=== PATIENT | female | born 1940 | race Caucasian/White ===

== ENCOUNTER 2021-08-16 21:53 | Emergency (ER) | payer BC ==
[~2021-08-16] VITALS: Ht 167.6 cm; Wt 86.2 kg
[2021-08-16 22:00] VITALS: BP 154/63
--- NOTE | 2021-08-16 22:00 | NUR ---
PT [facility] BLS. TAKEN TO BED 3
--- NOTE | 2021-08-16 22:00 | NUR ---
BIBA S/P FALL. LACERATION TO LEFT FOREHEAD, DRAINAGE COMTROLLED. PT DID NOT LOSE CONSCIOUSNESS AND STATED SHE TRIPPED OVER A DOOR JAM WHILE VISITING AT FRIENDS HOUSE.
--- NOTE | 2021-08-16 22:29 | NUR ---
Dr. Torres examining patient.
[2021-08-16] MEDS ORDERED: BACITRACIN OINT 500 UNITS/GM PKT TP ONE (22:35)
[2021-08-16] MEDS ORDERED: LIDOCAINE 2% 1000 MG/50 ML VIAL INJ ONE (22:35)
[2021-08-16] MEDS ORDERED: ACETAMINOPHEN EXTRA STRENGTH 500 MG TAB PO ONE (22:35)
--- NOTE | 2021-08-16 23:29 | NUR ---
PT TAKEN TO CT
--- NOTE | 2021-08-16 23:40 | NUR ---
PT RETURN FROM CT
[2021-08-17] MEDS ORDERED: BACI1PAC6 TP (00:47)
[2021-08-17 00:50] VITALS: BP 154/63
== END 2021-08-17 00:50 | disposition home or self-care (01) ==
LOC: MED 21:53
DX: S01.112A Laceration without foreign body of left eyelid and periocular area, initial encounter (principal); I10 Essential (primary) hypertension; Z90.49 Acquired absence of other specified parts of digestive tract; Z98.890 Other specified postprocedural states; W10.9XXA Fall (on) (from) unspecified stairs and steps, initial encounter; Y93.01 Activity, walking, marching and hiking; Y92.89 Other specified places as the place of occurrence of the external cause; Y99.8 Other external cause status
CPT/HCPCS: 12013; 70486; 90471; 90715; 99284; J2001